=== PATIENT | female | born 1975 | race Two or more races ===

== ENCOUNTER 2024-06-15 13:09 | Emergency (ER) | payer OTHER ==
[~2024-06-15] VITALS: Ht 165.1 cm; Wt 60.8 kg
[2024-06-15] MEDS ORDERED: ORPHENADRINE CITRATE 30 MG/ML AMPUL IM STA (14:36)
[2024-06-15] MEDS ORDERED: DEXAMETHASONE SODIUM PHOSPHATE 4 MG/ML VIAL IM STA (14:36)
[2024-06-15] MEDS ORDERED: ORPHENADRINE CITRATE 30 MG/ML AMPUL ONE (14:58)
[2024-06-15] MEDS ORDERED: DEXAMETHASONE SODIUM PHOSPHATE 4 MG/ML VIAL ONE (14:58)
== END 2024-06-15 15:06 | disposition home or self-care (01) ==
LOC: ER 13:10
DX: T14.8XXA Other injury of unspecified body region, initial encounter (principal); V49.9XXA Car occupant (driver) (passenger) injured in unspecified traffic accident, initial encounter; Y93.89 Activity, other specified; Y92.413 State road as the place of occurrence of the external cause; Y99.9 Unspecified external cause status; Z88.8 Allergy status to other drugs, medicaments and biological substances